=== PATIENT | female | born 1975 | race Caucasian/White ===

== ENCOUNTER 2020-11-28 11:34 | Emergency (ER) | payer OTHER ==
[~2020-11-28] VITALS: Ht 170.2 cm; Wt 63.5 kg
[2020-11-28] MEDS ORDERED: COLACE100 MG PO (12:52)
[2020-11-28] MEDS ORDERED: ANUSOL-HC25 MG RECTAL (12:52)
[2020-11-28] MEDS ORDERED: NORCO5 PO (12:52)
[2020-11-28 13:01] VITALS: BP 121/60
== END 2020-11-28 13:02 | disposition home or self-care (01) ==
LOC: M.ERS 11:34
DX: K64.5 Perianal venous thrombosis (principal); F17.210 Nicotine dependence, cigarettes, uncomplicated; Z88.6 Allergy status to analgesic agent